=== PATIENT | female | born 1990 | race Caucasian/White ===

== ENCOUNTER → 2016-11-23 | Outpatient (CLI) | payer BC ==
--- NOTE | 2016-11-23 23:14 | MR ---
EXAMINATION TYPE: MR lumbar spine wo/w con DATE OF EXAM: 11/23/2016 COMPARISON: NONE HISTORY: Follow up from MRI at [facility] 07/2015 TECHNIQUE: Multiplanar, multisequence images of the lumbar spine were acquired utilizing 15 mL intravenous Multi Conner gadolinium contrast. The lumbar vertebra have normal alignment. There is mild narrowing and decreased signal in the disc a t L4-5. There is a small posterior disc herniation at L4-5 centrally and towards the left side. The l umbar neural foramina are fairly well-maintained. I see no compression fracture. There is no spinal s tenosis. There is no paraspinal mass. Contrast images showed no pathologic enhancement. There is a 1. 5 cm rounded high signal focus in the L2 vertebral body consistent with hemangioma. IMPRESSION: There is a mild posterior central and left-sided L4-5 disc herniation without significant impingement on the neural elements. No fracture. Mild degenerative disc narrowing at L4-5.
== END | disposition home or self-care (01) ==
LOC: RADMRIMAIN 21:42
PROVIDERS: ATTEND Psychiatry & Neurology Neurology
DX: M48.06 Spinal stenosis, lumbar region (principal); M51.16 Intervertebral disc disorders with radiculopathy, lumbar region
CPT/HCPCS: 72158; A9577

== ENCOUNTER → 2023-08-01 | Outpatient (CLI) | payer OTHER ==
[2023-08-02 05:54] LABS: Egg White IgE <0.10 kU/L; Peanut IgE <0.10 kU/L; Soybean IgE <0.10 kU/L
[2023-08-02 14:20] LABS: Lettuce IgE Class CLASS 0
[2023-08-02 14:21] LABS: Beef IgE <0.10 kU/L (<0.10); Beef IgE Class CLASS 0; Pork IgE Class CLASS 0
[2023-08-02 14:22] LABS: Potato IgE <0.10 kU/L (<0.10); Potato IgE Class CLASS 0
[2023-08-02 14:23] LABS: Apple IgE Class CLASS 0; Chicken IgE Class CLASS 0; Oat IgE Class CLASS 0; Onion IgE <0.10 kU/L (<0.10); Onion IgE Class CLASS 0; Yeast Bakers/Brew IgE <0.10 kU/L (<0.10); Yeast Bakers/Brew IgE Class CLASS 0
[2023-08-02 14:24] LABS: Banana IgE Class CLASS 0; Celery IgE <0.10 kU/L (<0.10); Celery IgE Class CLASS 0; Gluten IgE Class CLASS 0; Latex IgE Class CLASS 0
== END | disposition home or self-care (01) ==
LOC: LABWHC1 15:46
PROVIDERS: ATTEND Otolaryngology
DX: J30.89 Other allergic rhinitis (principal)
CPT/HCPCS: 36415; 86003